=== PATIENT | male | born 1965 | race Asian ===

== ENCOUNTER 2022-09-05 00:46 | Emergency (ER) | payer SELFPAY ==
[~2022-09-05] VITALS: Ht 172.7 cm; Wt 81.6 kg
[2022-09-05 00:50] VITALS: BP_SYST 176
[2022-09-05] MEDS ORDERED: ONDANSETRON HCL 4 MG/2 ML VIAL IVP ONE (01:00)
[2022-09-05] MEDS ORDERED: NACL 0.9% 1,000 ML IV ONE ×2 (01:00→02:00)
[2022-09-05 01:17] LABS: BASOPHILS # (AUTO) 0.3 K/uL (0.0-0.2); BASOPHILS % (AUTO) 4.3 % (0.0-2.0); EOSINOPHILS # (AUTO) 0.2 K/uL (0.0-0.4); EOSINOPHILS % (AUTO) 3.1 % (0.0-4.0); HEMATOCRIT 41.8 % (36-54); HEMOGLOBIN 14.1 g/dL (14.0-18.0); LYMPHOCYTES # (AUTO) 1.2 K/uL (1.0-5.5); LYMPHOCYTES % (AUTO) 15.3 % (20.5-51.5); MEAN CORPUSCULAR HEMOGLOBIN 30 pg (27-31); MEAN CORPUSCULAR HGB CONC 34 % (32-36); MEAN CORPUSCULAR VOLUME 88 fL (79.0-98.0); MONOCYTES # (AUTO) 0.1 K/uL (0.0-1.0); MONOCYTES % (AUTO) 1.5 % (1.7-9.3); NEUTROPHILS # (AUTO) 5.7 K/uL (1.8-7.7); NEUTROPHILS % (AUTO) 75.8 % (40.0-70.0); PLATELET COUNT (AUTO) 260 K/uL (130-430); RED BLOOD CELL COUNT(AUTO) 4.74 MIL/uL (4.2-6.2); RED CELL DISTRIBUTION WIDTH 13.4 % (9.0-15.0); WHITE BLOOD COUNT (AUTO) 7.6 K/uL (4.8-10.8)
[2022-09-05 01:45] LABS: ANION GAP 9 (5-15); CALCIUM 8.8 mg/dL (8.4-11.0); CHLORIDE 100 mmol/L (98-107); CREATININE 0.67 mg/dL (0.55-1.30); UREA NITROGEN, BLOOD 15 mg/dL (8-21)
[2022-09-05 01:46] LABS: GFR AFRICAN AMERICAN 157 mL/min (>90)
[2022-09-05 01:47] LABS: GLUCOSE 428 mg/dL (70-99)
[2022-09-05 01:52] LABS: ALANINE AMINOTRANSFERASE 23 U/L (12-78); ALBUMIN 3.6 g/dL (3.4-4.8); ASPARTATE AMINOTRANSFERASE 10 U/L (10-37); TOTAL BILIRUBIN 1.1 mg/dL (0.0-1.0)
[2022-09-05 01:53] LABS: ALCOHOL, BLOOD < 3 mg/dL (<10)
[2022-09-05] MEDS ORDERED: INSULIN REGULAR, HUMAN 10 UNITS/0.1 ML, 3 ML VIAL IVP ONE (02:00)
[2022-09-05 03:21] VITALS: BP_SYST 149
== END 2022-09-05 03:21 | disposition left against medical advice (07) ==
LOC: SED 00:46
DX: R73.9 Hyperglycemia, unspecified (principal); R56.9 Unspecified convulsions; R11.10 Vomiting, unspecified; Z79.899 Other long term (current) drug therapy
CPT/HCPCS: 99285; 96374; 70450; 71045; 96361; 80053; 82550; 85025; 84484; 36415; 93005; 76376; 96372; G0482; J1815; J2405; J7030